=== PATIENT | female | born 2000 | race Asian ===

== ENCOUNTER 2019-03-28 10:16 | Emergency (ER) | payer OTHER ==
[2019-03-28 10:58] LABS: Influenza B Molecular POSITIVE (Negative)
[2019-03-28] MEDS ORDERED: Ibuprofen TAB* 600 MG PO ONE (12:29)
--- NOTE | 2019-03-28 12:29 | ED ---
Syncope/Near Syncope - HPI Summary HPI Summary: Patient is a 19 y/o F presenting to the ED for a chief complaint of syncope on 03/28/19 and influenza-like symptoms for the last 2 days. Patient is present with her boyfriend. Patient states that she had two syncopal episodes on . During the first episode, she fell and hit the back of her head. During the second episode, she hit her face. She notes feeling lightheadedness before the syncopal episodes. The episodes occurred between 09:30 and 10:00. Patient currently complains of cough, generalized weakness, loose tooth, and laceration on the lip. Patient does not recall falling. Patient denies palpitations, chest pain, shortness of breath, fever, nausea, vomiting, diarrhea, or vaginal bleeding. She denies receiving an influenza vaccination this season. LNMP was 3 weeks ago. Any significant PMHx, PSHx, allergies, or medications are denied. FMHx of arrhythmia denied. She denies tobacco or drug use, but admits occasional alcohol use. Medications reviewed. Allergies noted. - History Of Current Complaint Chief Complaint: EDSyncope Time Seen by Provider: 03/28/19 12:17 Hx Obtained From: Patient Onset/Duration: Sudden Onset, Resolved Timing: Constant Context: Loss Of Consciousness Associated Head Trauma: Yes Aggravating Factor(s): Nothing Alleviating Factor(s): Spontaneous Resolution Associated Signs And Symptoms: Lightheadedness, Weakness - Generalized - Allergies/Home Medications Allergies/Adverse Reactions: Allergies Allergy/AdvReac Type Severity Reaction Status Date / Time No Known Allergies Allergy Verified 03/28/19 10:30 Home Medications: Home Medications NK [No Home Medications Reported] 03/28/19 [History Confirmed 03/28/19] PMH/Surg Hx/FS Hx/Imm Hx Previously Healthy: Yes Endocrine/Hematology History: Denies: Hx Diabetes Cardiovascular History: Denies: Hx Hypertension Sensory History: Denies: Hx Legally Blind, Hx Deafness Opthamlomology History: Denies: Hx Legally Blind EENT History: Denies: Hx Deafness - Surgical History Surgical History: None Surgery Procedure, Year, and Place: None Infectious Disease History: No Infectious Disease History: Denies: Traveled Outside the [place] in Last 30 Days - Family History Known Family History: Negative: Diabetes - Social History Occupation: Student Lives: Alone Alcohol Use: Occasionally Hx Substance Use: No Substance Use Type: Reports: None Hx Tobacco Use: No Smoking Status (MU): Never Smoked Tobacco Review of Systems Negative: Fever Positive: Other - Positive loose tooth Negative: Palpitations, Chest Pain Positive: Cough. Negative: Shortness Of Breath Negative: Vomiting, Diarrhea, Nausea Negative: other - Negative vaginal bleeding Positive: Other - Positive laceration on the lip Positive: Weakness - Generalized, Syncope All Other Systems Reviewed And Are Negative: Yes Physical Exam - Summary Physical Exam Summary: Constitutional: Well-developed, Well-nourished, Alert. (-) Distressed Skin: Warm, Dry HENT: Normocephalic. 0.5 cm laceration on the buccal surface of the lip not through on through, small laceration on the mucosal surface. 8th tooth is loose , but in place. Eyes: Conjunctiva normal Neck: Musculoskeletal ROM normal neck. (-) JVD, (-) Stridor, (-) Tracheal deviation Cardio: Rhythm regular, rate normal, Heart sounds normal; Intact distal pulses; Radial pulses are 2+ and symmetric. (-) Murmur Pulmonary/Chest wall: Effort normal. (-) Respiratory distress, (-) Wheezes, (-) Rales Abd: Soft, (-) tenderness, (-) Distension, (-) Guarding, (-) Rebound Musculoskeletal: (-) Edema Lymph: (-) Cervical adenopathy Neuro: Alert, Oriented x3 Psych: Mood and affect Normal Triage Information Reviewed: Yes Vital Signs On Initial Exam: Initial Vitals Temp Pulse Resp BP Pulse Ox 100.0 F 88 19 113/78 99 03/28/19 10:26 03/28/19 10:26 03/28/19 10:26 03/28/19 10:26 03/28/19 10:26 Vital Signs Reviewed: Yes Procedures - Sedation Patient Received Moderate/Deep Sedation with Procedure: No Diagnostics - Vital Signs Vital Signs Temp Pulse Resp BP Pulse Ox 03/28/19 10: 100.0 F 88 19 113/78 99 - Laboratory Lab Results: Lab Results 03/28/19 Range/Units 10:24 Influenza A (Rapid) Not Reportable Influenza B (Rapid) Positive A (Negative) Result Diagrams: 03/28/19 12:51 03/28/19 12:51 Lab Statement: Any lab studies that have been ordered have been reviewed, and results considered in the medical decision making process. - Radiology Chest X-ray Radiology Interpretation Completed By: Radiologist Summary of Radiographic Findings: Chest X-ray IMPRESSION: No acute cardiopulmonary process by radiograph. Reviewed by Dr. Lawson. - EKG 12:20 Cardiac Rate: NL - 77 BPM EKG Rhythm: Sinus Rhythm ST Segment: Normal Ectopy: None Summary of EKG Findings: EKG at 12:20 shows normal sinus rhythm with 77 BPM, no ischemic changes, no STEMI. Reviewed and interpreted by Dr. Lawson. Course/Dx Course Of Treatment: Patient is here with flulike symptoms. Patient is diagnosed with influenza. Patient did have 2 episodes of syncope today which occurred after she stood up. Patient has a intraoral laceration that does not need repair. Patient has no through and through laceration. Patient had a EKG which showed no evidence of abnormality. Patient had negative troponin and blood tests. Patient is out of the treatment window for Tamiflu and was discharged on Motrin and Tylenol - Diagnoses Provider Diagnoses: Syncope, Influenza Discharge ED - Sign-Out/Discharge Documenting (check all that apply): Patient Departure - Discharge - Discharge Plan Condition: Stable Disposition: HOME Patient Education Materials: Influenza (ED) Forms: *School Release Referrals: [facility] - Chucho RODRIGUEZ [Primary Care Provider] - Additional Instructions: PLEASE RETURN TO EMERGENCY DEPARTMENT FOR TROUBLE BREATHING, SEVERE COUGH, OR ANY NEW OR WORSENING SYMPTOMS. Please follow up with your primary care physician. Please make all follow-ups in 1-3 days unless I advise you otherwise. Take Motrin or Tylenol for pain. Stay hydrated with Pedialyte. - Billing Disposition and Condition Condition: STABLE Disposition: Home - Attestation Statements Document Initiated by Carrington: Yes Documenting Scribe: Ruthann Monroe Provider For Whom Carrington is Documenting (Include Credential): Octavio Lawson MD Scribe Attestation: Ruthann Sutton scribed for Octavio Lawson MD on 03/28/19 at 1542. Scribe Documentation Reviewed: Yes Provider Attestation: The documentation as recorded by the Ruthann patrick accurately reflects the service I personally performed and the decisions made by me, Octavio Lawson MD Status of Scribe Document: Viewed
[2019-03-28 13:00] LABS: ABS Lymphocytes 0.7 10^3/ul (1.0-4.8); ABS Monocytes 0.7 10^3/ul (0-0.8); ABS Neutrophils 2.8 10^3/ul (1.5-7.7); Eosinophil % 0.9 %; Hematocrit 36 % (35-47); Hemoglobin 11.7 g/dL (12.0-16.0); Lymphocyte % 16.1 %; Mean Corpuscular HGB Conc 33 g/dL (31-36); Mean Corpuscular Hemoglobin 26 pg (27-31); Mean Corpuscular Volume 80 fL (80-97); Platelet Count 254 10^3/uL (150-450); Red Blood Count 4.46 10^6 /uL (3.70-4.87); Red Cell Distribution Width 16 % (10-15); White Blood Count 4.2 10^3/uL (3.5-10.8)
[2019-03-28 13:19] LABS: Anion Gap 7 mmol/L (2-11); BUN/Creatinine Ratio 9.6 (8-20); Blood Urea Nitrogen 7 mg/dL (6-24); CO2 Carbon Dioxide 25 mmol/L (22-32); Calcium 8.8 mg/dL (8.6-10.3); Chloride 103 mmol/L (101-111); EGFR Non-African American 101.6 (>60); Glucose 78 mg/dL (70-100); Sodium 135 mmol/L (135-145)
[2019-03-28 13:25] LABS: HCG Pregnancy < 0.60 mIU/mL
[2019-03-28 14:09] VITALS: BP 107/74
== END 2019-03-28 14:08 | disposition home or self-care (01) ==
LOC: ED 10:16
DX: R55 Syncope and collapse (principal); J10.1 Influenza due to other identified influenza virus with other respiratory manifestations; S01.511A Laceration without foreign body of lip, initial encounter; K08.89 Other specified disorders of teeth and supporting structures; W18.30XA Fall on same level, unspecified, initial encounter; Y92.9 Unspecified place or not applicable; R53.1 Weakness
CPT/HCPCS: 36415; 71046; 80048; 84484; 84702; 85025; 93005; 99283; A9270-GY